=== PATIENT | female | born 1995 | race African-American/Black ===

== ENCOUNTER 2017-01-05 10:42 | Emergency (ER) | payer SELFPAY ==
[2017-01-05] MEDS ORDERED: Ciprofloxacin 500 MG TAB ONE (11:18)
[2017-01-05] MEDS ORDERED: Pseudoephedrine HCl 30 MG TAB ONE (11:18)
== END 2017-01-05 11:23 | disposition home or self-care (01) ==
LOC: MADERS 10:42
DX: J01.90 Acute sinusitis, unspecified (principal)
CPT/HCPCS: 99283